=== PATIENT | female | born 1995 | race Caucasian/White ===

== ENCOUNTER 2019-12-14 17:21 | Emergency (ER) | payer OTHER ==
--- NOTE | 2019-12-14 18:50 | EDM.PDOC ---
ED HPI GENERAL MEDICAL PROBLEM - General Chief Complaint: Respiratory Problem Stated Complaint: CHEST PAIN WITH DIFFICULTY BREATHING Time Seen by Provider: 12/14/19 18:21 Source of Information: Reports: Patient History Limitations: Reports: No Limitations - History of Present Illness INITIAL COMMENTS - FREE TEXT/NARRATIVE: HISTORY AND PHYSICAL: History of present illness: Patient is a 24-year-old female who presents to the emergency room requesting evaluation for COVID-19. She states that she lives in a house with several other people who have all tested positive for COVID-19. She states they were all swabbed and tested on 11/29/2019, the other roommates tested positive, she came back negative. A week later she was retested and again came back negative (due to exposure). 2 days ago she started to develop diarrhea, chest pain and shortness of breath. She states that the shortness of breath is worse with rest and actually improves with physical activity. She is concerned that she is now just developing symptoms and her quarantine will be up on 12/20/2019 due to her exposure. Patient denies any fever, chills, headache, change in vision, syncope or near syncope. Denies neck/back pain, abdominal pain, nausea, vomiting, constipation or dysuria. Denies any chance of , Mirena IUD. Has not noted any blood in urine or stool. Patient has been eating and drinking appropriately. Review of systems: As per history of present illness and below otherwise all systems reviewed and negative. Past medical history: As per history of present illness and as reviewed below otherwise noncontributory. Surgical history: As per history of present illness and as reviewed below otherwise noncontributory. Social history: See social history for further information Family history: As per history of present illness and as reviewed below otherwise noncontributory. Physical exam: General: Well developed and well-nourished 24-year-old female. Alert and orie nted. Nontoxic-appearing and in no acute distress. HEENT: Atraumatic, normocephalic, pupils equal and reactive bilaterally, negative for conjunctival pallor or scleral icterus, scleral injection bila terally, mucous membranes moist, trachea midline. No drooling or trismus noted. No meningeal signs. No hot potato voice noted. Lungs: Clear to auscultation, breath sounds equal bilaterally, chest nontender. Nonproductive cough noted. Heart: S1S2, regular rate and rhythm without overt murmur Abdomen: Soft, nondistended, nontender. Skin: Intact, warm, dry. No lesions or rashes noted. Extremities: Atraumatic, moves all extremities per self without difficulty or deficits, negative for cords or calf pain. Neurovascular unremarkable. Neuro: Awake, alert, oriented. Cranial nerves II through XII unremarkable. Cerebellum unremarkable. Motor and sensory unremarkable throughout. Exam nonfocal. Notes: Chest x-ray shows no acute findings. EKG shows a sinus rhythm with rate of 73, no acute findings. Patient's COVID screening is positive. We discussed in great length signs and symptoms that would prompt her to return to the emergency room. Her repeat physical exam demonstrates she is stable and appropriate for discharge. Vital signs are stable. She states her roommates been in quarantine since the , encouraged her to talk with the state department about whether or not they need their quarantined extended. Will prescribe dexamethasone and pro-air inhaler for symptomatic relief. Supportive care measures were reviewed and discussed. Voices understanding and is agreeable to plan of care. Denies any further questions or concerns at this time. Diagnostics: CBC, CMP, Renteria, CXR, EKG Therapeutics: None Prescription: Dexamethasone Pro-Air Inhaler Impression: COVID-19 Plan: 1. Your COVID-19 screening is positive. That means you do have the coronavirus and are considered contagious. Your vital signs and oxygen saturation are well enough that you were able to monitor your symptoms at home. Continue to monitor for trouble breathing, new confusion or inability to arouse, bluish lips or face or any of the other symptoms we discussed -if this occurs please return to the emergency room. 2. Please self quarantine over the next 2 weeks. Your roommates will likely need to extend their quarantine as well. Inform any persons that you have been in contact with since you started becoming symptomatic that you have tested positive; they should be made aware and take the appropriate steps as needed. 3. Take the medications as we prescribed as discussed. You can take NyQuil during the evening to help get a restful night sleep. 4. You may alternate Tylenol and ibuprofen as needed for pain and fever management. 5. The [facility] department will be calling you and following up with you. The [place] Hot[place] phone [place] , They are open Tuesday - Tuesday 7am - 7pm. Follow up with your primary care provider for re-evaluation and re-testing after the 2 week quarantine and discuss when you should be seen. Definitive disposition and diagnosis as appropriate pending reevaluation and review of above. Chest Pain Score (Numeric/FACES): 2 - Related Data Allergies Allergy/AdvReac Type Severity Reaction Status Date / Time vancomycin Allergy Anaphylactic Verified 12/14/19 18:31 Shock Home Meds: Home Meds Albuterol Sulfate [Proair Hfa] 2 puff IH Q4H PRN #1 [email or web address] 12/14/19 [Rx] dexAMETHasone [Dexamethasone] 4 mg PO BID 5 Days #10 tablet 12/14/19 [Rx] Past Medical History HEENT History: Reports: None Cardiovascular History: Reports: None Respiratory History: Reports: None Gastrointestinal History: Reports: None Genitourinary History: Reports: None SOLE RUFFER History: Reports: None Other Musculoskeletal History: fx right wrist and elbow Neurological History: Reports: None Psychiatric History: Reports: None Endocrine/Metabolic History: Reports: None Hematologic History: Reports: None Immunologic History: Reports: None Oncologic (Cancer) History: Reports: None Dermatologic History: Reports: None - Infectious Disease History Infectious Disease History: Reports: MRSA - Past Surgical History Head Surgeries/Procedures: Reports: None Social & Family History - Tobacco Use Smoking Status *Q: Never Smoker Second Hand Smoke Exposure: No - Caffeine Use Caffeine Use: Reports: None - Alcohol Use Days Per Week of Alcohol Use: 3 Number of Drinks Per Day: 1 Total Drinks Per Week: 3 - Recreational Drug Use Recreational Drug Use: No ED ROS GENERAL - Review of Systems Review Of Systems: Comprehensive ROS is negative, except as noted in HPI. ED EXAM, GENERAL - Physical Exam Exam: See Below (See dictation) Course - Vital Signs Last Recorded V/S: Last Vital Signs Temp 97.5 F 12/14/19 18:36 Pulse 87 12/14/19 18:36 Resp 20 12/14/19 18:36 BP 152/87 H 12/14/19 18:36 Pulse Ox 98 12/14/19 18:36 - Orders/Labs/Meds Orders: Active Orders 24 hr Category Date Time Status EKG Documentation Completion [RC] STAT Care 12/14/19 18:46 Active COMPREHENSIVE METABOLIC PN,CMP [CHEM] Stat Lab 12/14/19 19:13 Received Labs: Laboratory Tests 12/14/19 12/14/19 Range/Units 19:04 19:13 WBC 4.56 (4.0-11.0) K/uL RBC 5.21 (4.30-5.90) M/uL Hgb 15.2 (12.0-16.0) g/dL Hct 45.1 (36.0-46.0) % MCV 86.6 (80.0-98.0) fL MCH 29.2 (27.0-32.0) pg MCHC 33.7 (31.0-37.0) g/dL RDW Std Deviation 38.2 (28.0-62.0) fl RDW Coeff of Artie 12 (11.0-15.0) % Plt Count 140 L (150-400) K/uL MPV 8.90 (7.40-12.00) fL Neut % (Auto) 43.7 L (48.0-80.0) % Lymph % (Auto) 48.7 H (16.0-40.0) % Yancey % (Auto) 5.9 (0.0-15.0) % Eos % (Auto) 1.3 (0.0-7.0) % Baso % (Auto) 0.4 (0.0-1.5) % Neut # (Auto) 2.0 (1.4-5.7) K/uL Lymph # (Auto) 2.2 (0.6-2.4) K/uL Yancey # (Auto) 0.3 (0.0-0.8) K/uL Eos # (Auto) 0.1 (0.0-0.7) K/uL Baso # (Auto) 0.0 (0.0-0.1) K/uL Nucleated RBC % 0.0 /100WBC Nucleated RBCs # 0 K/uL COVID-19 (CARLOS) POSITIVE H (NEGATIVE) Departure - Departure Time of Disposition: 19:42 Disposition: Home, Self-Care 01 Clinical Impression: COVID-19 - Discharge Information Prescriptions: dexAMETHasone [Dexamethasone] 4 mg PO BID 5 Days #10 tablet Albuterol Sulfate [Proair Hfa] 2 puff IH Q4H PRN #1 hfa.aer.ad PRN Reason: Dyspnea Instructions: COVID-19 Frequently Asked Questions Referrals: Ruth Severino, SHEET METAL ERECTOR [Primary Care Provider] - Forms: ED Department Discharge Additional Instructions: The following information is given to patients seen in the emergency department who are being discharged to home. This information is to outline your options for follow-up care. We provide all patients seen in our emergency department with a follow-up referral. The need for follow-up, as well as the timing and circumstances, are variable depending upon the specifics of your emergency department visit. If you don't have a primary care physician on staff, we will provide you with a referral. We always advise you to contact your personal physician following an emergency department visit to inform them of the circumstance of the visit and for follow-up with them and/or the need for any referrals to a consulting specialist. The emergency department will also refer you to a specialist when appropriate. This referral assures that you have the opportunity for follow-up care with a specialist. All of these measure are taken in an effort to provide you with optimal care, which includes your follow-up. Under all circumstances we always encourage you to contact your private physician who remains a resource for coordinating your care. When calling for follow-up care, please make the office aware that this follow-up is from your recent emergency room visit. If for any reason you are refused follow-up, please contact the [facility] Emergency Department at and asked to speak to the emergency department charge nurse. [facility] Primary [facility] [address] [place] [id number] [address] Thank you for choosing the [facility] emergency department in [place] for your medical needs today. It was a pleasure caring for you. You were seen in the emergency department for COVID-19. 1. Your COVID-19 screening is positive. That means you do have the coronavirus and are considered contagious. Your vital signs and oxygen saturation are well enough that you were able to monitor your symptoms at home. Continue to monitor for trouble breathing, new confusion or inability to arouse, bluish lips or face or any of the other symptoms we discussed -if this occurs please return to the emergency room. 2. Please self quarantine over the next 2 weeks. Your roommates will likely need to extend their quarantine as well. Inform any persons that you have been in contact with since you started becoming symptomatic that you have tested positive; they should be made aware and take the appropriate steps as needed. 3. Take the medications as we prescribed as discussed. You can take NyQuil during the evening to help get a restful night sleep. 4. You may alternate Tylenol and ibuprofen as needed for pain and fever management. 5. The [facility] department will be calling you and following up with you. The [place] [employer] Hotline phone number , They are open Tuesday - Tuesday 7am - 7pm. Follow up with your primary care provider for re-evaluation and re-testing after the 2 week quarantine and discuss when you should be seen. Sepsis Event Note (ED) - Evaluation Sepsis Screening Result: No Definite Risk - Focused Exam Vital Signs: Vital Signs Temp Pulse Resp BP Pulse Ox 12/14/19 18:36 97.5 F 87 20 152/87 H 98 - My Orders Last 24 Hours: My Active Orders 12/14/19 18:46 EKG Documentation Completion [RC] STAT 12/14/19 19:13 COMPREHENSIVE METABOLIC PN,CMP [CHEM] Stat - Assessment/Plan Last 24 Hours: My Active Orders 12/14/19 18:46 EKG Documentation Completion [RC] STAT 12/14/19 19:13 COMPREHENSIVE METABOLIC PN,CMP [CHEM] Stat
--- NOTE | 2019-12-14 19:21 | CR ---
Chest: Portable view of the chest was obtained. Comparison: No previous chest x-ray. Heart size and mediastinum are normal. Lungs are clear. Bony structures are grossly intact. Impression: 1. Nothing acute is seen on portable chest x-ray. Diagnostic code #1 This report was dictated in MDT
[2019-12-14 19:44] LABS: BLOOD UREA NITROGEN,BUN 13 mg/dL (7.0-18.0); CARBON DIOXIDE,CO2 25.9 mmol/L (21.0-32.0); CHLORIDE,CL 105 mmol/L (98-107); GLUCOSE RANDOM 90 mg/dL (74-106); POTASSIUM,K 4.4 mmol/L (3.5-5.1); SODIUM,NA 139 mmol/L (136-145)
== END 2019-12-14 20:03 | disposition home or self-care (01) ==
LOC: MW.ED 17:21
DX: U07.1 COVID-19 (principal); Z88.1 Allergy status to other antibiotic agents
CPT/HCPCS: 36415; 71045; 71045-26; 80053; 85025; 93005; 99282; 99285-25; U0002

== ENCOUNTER 2020-10-15 14:15 | Emergency (ER) | payer OTHER ==
[2020-10-15] MEDS ORDERED: Sodium Chloride 0.9% 2.5 ML Syringe FLUSH PRN (14:36)
[2020-10-15] MEDS ORDERED: Sodium Chloride 0.9% 10 ML Syringe FLUSH PRN (14:36)
--- NOTE | 2020-10-15 14:42 | EDM.PDOC ---
ED HPI GENERAL MEDICAL PROBLEM - General Chief Complaint: Chest Pain Stated Complaint: CHEST PAIN Time Seen by Provider: 10/15/20 14:21 - History of Present Illness INITIAL COMMENTS - FREE TEXT/NARRATIVE: History of present illness: 45-year-old female presents to emergency department today complaining of chest pain that started 2 days ago. Chest pain is episodic in nature described as being dull and achy. The pain is located in her middle and upper chest. She can feel as if "I just ran a lot" when her symptoms occur. The pain seems to be more bothersome when she sits or lies down. The pain actually feels better when she gets up and starts walking around. She also has associated heart pounding sensation shortness of breath and tingling in her fingers. The pain will last approximately 20 minutes before resolving. She reports having chest discomfort on and off since being diagnosed with Covid in December of last year. She came to the ER today because her pain got more frequent over the past 2 days. History of childhood asthma. Denies any tobacco use or illicit drug use. States she drinks alcohol occasionally. Review of systems: As per history of present illness and below otherwise all systems reviewed and negative. Past medical history: As per history of present illness and as reviewed below otherwise noncontributory. Surgical history: As per history of present illness and as reviewed below otherwise noncontributory. Social history: No reported history of drug or alcohol abuse. Family history: As per history of present illness and as reviewed below otherwise noncontributory. Physical exam: Constitutional - well developed, well-nourished and in no acute distress HEENT - normocephalic, no evidence of trauma - external nose and mouth normal - no mass in neck and no JVD - mucosae moist EYES - full EOM, PERRL, no icterus - no evidence of inflammation, injection, or drainage. Respiratory - no respiratory distress, equal bilateral expansion, lungs clear to auscultation and no abnormal lung sounds Cardiovascular - Regular Rhythm with S1 and S2 appreciated and no murmur, gallop or rub appreciated. GI - soft, non-tender, without distension or organomegaly - normal bowel sounds - no guard or rebound. Neurologic - Alert and oriented times four - CN II-XII grossly intact - motor sensory and coordination symmetrically normal. Psychiatric - appropriate mood and affect. Diagnostics: [] Therapeutics: [] Impression: [] Plan: [] Definitive disposition and diagnosis as appropriate pending reevaluation and review of above. Chest Pressure Pain Score (Numeric/FACES): 4 - Related Data Allergies Allergy/AdvReac Type Severity Reaction Status Date / Time vancomycin Allergy Anaphylactic Verified 10/15/20 14:39 Shock Home Meds: Home Meds . [No Known Home Meds] 10/15/20 [History] Past Medical History HEENT History: Reports: None Cardiovascular History: Reports: None Respiratory History: Reports: None Gastrointestinal History: Reports: None Genitourinary History: Reports: None SEC ACCOUNTANT History: Reports: None Other Musculoskeletal History: fx right wrist and elbow Neurological History: Reports: None Psychiatric History: Reports: None Endocrine/Metabolic History: Reports: None Hematologic History: Reports: None Immunologic History: Reports: None Oncologic (Cancer) History: Reports: None Dermatologic History: Reports: None - Infectious Disease History Infectious Disease History: Reports: MRSA - Past Surgical History Head Surgeries/Procedures: Reports: None Social & Family History - Caffeine Use Caffeine Use: Reports: None ED ROS GENERAL - Review of Systems Review Of Systems: Comprehensive ROS is negative, except as noted in HPI. ED EXAM, GENERAL - Physical Exam Exam: See Below Free Text/Narrative:: Physical exam is in the HPI #1 Interpretation EKG Interpretation Comments: EKG done at 2:20 PM sinus arrhythmia with a heart rate of 62. DC interval is 144 QT duration is 434 axis is 12 she has a ventricular premature complex QRS is normal except for late transition R wave in the precordium ST and T are normal as compared to 12/14/2019 and this is no change impression normal EKG Course - Vital Signs Text/Narrative:: 1530 2 PM bedside sonography did not reveal a pericardial effusion or any obvious wall motion abnormality. Zio patch was ordered because this patient has palpitations that are now progressing to the point of interfering with her normal lifestyle. Palpitations as diagnosis Zio patch for 14 days results to her primary doctor. Last Recorded V/S: Last Vital Signs Temp 37.0 C 10/15/20 14:15 Pulse 74 10/15/20 14:15 Resp 18 10/15/20 14:15 BP 149/75 H 10/15/20 14:15 Pulse Ox 97 10/15/20 14:15 - Orders/Labs/Meds Orders: Active Orders 24 hr Category Date Time Status EKG Documentation Completion [RC] AM Care 10/15/20 14:36 Active Sodium Chloride 0.9% [Saline Flush] Med 10/15/20 14:36 Active 10 ml FLUSH ASDIRECTED PRN Sodium Chloride 0.9% [Saline Flush] Med 10/15/20 14:36 Active 2.5 ml FLUSH ASDIRECTED PRN Saline Lock Insert [OM.PC] Stat Oth 10/15/20 14:36 Ordered Medication Orders Sodium Chloride (Sodium Chloride 0.9% 10 Ml Syringe) 10 ml FLUSH ASDIRECTED PRN PRN Reason: Keep Vein Open Last Admin: 10/15/20 14:41 Dose: 10 ml Documented by: WIN Sodium Chloride (Sodium Chloride 0.9% 2.5 Ml Syringe) 2.5 ml FLUSH ASDIRECTED PRN PRN Reason: Keep Vein Open Last Admin: 10/15/20 14:41 Dose: 2.5 ml Documented by: WIN Labs: Laboratory Tests 10/15/20 10/15/20 10/15/20 Range/Units 14:20 14:20 14:20 WBC 8.04 (4.0-11.0) K/uL RBC 4.91 (4.30-5.90) M/uL Hgb 14.6 (12.0-16.0) g/dL Hct 42.6 (36.0-46.0) % MCV 86.8 (80.0-98.0) fL MCH 29.7 (27.0-32.0) pg MCHC 34.3 (31.0-37.0) g/dL RDW Std Deviation 40.6 (28.0-62.0) fl RDW Coeff of Artie 13 (11.0-15.0) % Plt Count 188 (150-400) K/uL MPV 9.10 (7.40-12.00) fL Neut % (Auto) 58.7 (48.0-80.0) % Lymph % (Auto) 34.7 (16.0-40.0) % Hopkins % (Auto) 4.6 (0.0-15.0) % Eos % (Auto) 1.9 (0.0-7.0) % Baso % (Auto) 0.1 (0.0-1.5) % Neut # (Auto) 4.7 (1.4-5.7) K/uL Lymph # (Auto) 2.8 H (0.6-2.4) K/uL Hopkins # (Auto) 0.4 (0.0-0.8) K/uL Eos # (Auto) 0.2 (0.0-0.7) K/uL Baso # (Auto) 0.0 (0.0-0.1) K/uL Nucleated RBC % 0.0 /100WBC Nucleated RBCs # 0 K/uL Sodium 139 (136-145) mmol/L Potassium 3.5 (3.5-5.1) mmol/L Chloride 104 (98-107) mmol/L Carbon Dioxide 27.3 (21.0-32.0) mmol/L BUN 12 (7.0-18.0) mg/dL Creatinine 0.9 (0.6-1.0) mg/dL Est Cr Clr Drug Dosing 98.99 mL/min Estimated GFR (MDRD) > 60.0 ml/min Glucose 95 (74-106) mg/dL Calcium 9.1 (8.5-10.1) mg/dL Total Bilirubin 0.5 (0.2-1.0) mg/dL AST 34 (15-37) IU/L ALT 23 (14-63) IU/L Alkaline Phosphatase 76 (46-116) U/L Troponin I < 0.050 (0.000-0.056) ng/mL Total Protein 7.5 (6.4-8.2) g/dL Albumin 4.3 (3.4-5.0) g/dL Globulin 3.2 (2.6-4.0) g/dL Albumin/Globulin Ratio 1.3 (0.9-1.6) TSH 3rd Generation 1.89 (0.36-3.74) uIU/mL HCG, Qual NEGATIVE (NEG) Meds: Medications Generic Name Dose Route Start Last Admin Trade Name Freq PRN Reason Stop Dose Admin Sodium Chloride 10 ml 10/15/20 14:36 10/15/20 14:41 Sodium Chloride 0.9% 10 Ml Syringe FLUSH 10 ml ASDIRECTED PRN Administration Keep Vein Open Sodium Chloride 2.5 ml 10/15/20 14:36 10/15/20 14:41 Sodium Chloride 0.9% 2.5 Ml Syringe FLUSH 2.5 ml ASDIRECTED PRN Administration Keep Vein Open Departure - Departure Time of Disposition: 15:42 Disposition: Home, Self-Care 01 Condition: Good Clinical Impression: Palpitations, Atypical chest pain - Discharge Information Instructions: Nonspecific Chest Pain, Adult, [id number], Palpitations Referrals: Ruth Severino [employer]ODU[employer] II ASSEMBLER [Primary Care Provider] - Forms: ED Department Discharge Additional Instructions: Anti-inflammatory medicine and good rest are necessary for chest wall type pain. Make an appointment the cardiology clinic to see what other studies they think are necessary. Ziehl patch should be taken off and return and then follow-up with your doctor or the cardiology clinic for results. [facility] - cardiology [address] [place] [address] [facility] - Primary Care [address] [place] [id number] [address] The following information is given to patients seen in the emergency department who are being discharged to home. This information is to outline your options for follow-up care. We provide all patients seen in our emergency department with a follow-up referral. The need for follow-up, as well as the timing and circumstances, are variable depending upon the specifics of your emergency department visit. If you don't have a primary care physician on staff, we will provide you with a referral. We always advise you to contact your personal physician following an emergency department visit to inform them of the circumstance of the visit and for follow-up with them and/or the need for any referrals to a consulting specialist. The emergency department will also refer you to a specialist when appropriate. This referral assures that you have the opportunity for follow-up care with a specialist. All of these measure are taken in an effort to provide you with optimal care, which includes your follow-up. Under all circumstances we always encourage you to contact your private physician who remains a resource for coordinating your care. When calling for follow-up care, please make the office aware that this follow-up is from your recent emergency room visit. If for any reason you are refused follow-up, please contact the [facility] Emergency Department at and asked to speak to the emergency department charge nurse. Sepsis Event Note (ED) - Focused Exam Vital Signs: Vital Signs Temp Pulse Resp BP Pulse Ox 10/15/20 14:15 37.0 C 74 18 149/75 H 97 - My Orders Last 24 Hours: My Active Orders 10/15/20 14:36 EKG Documentation Completion [RC] AM Sodium Chloride 0.9% [Saline Flush] 10 ml FLUSH ASDIRECTED PRN Sodium Chloride 0.9% [Saline Flush] 2.5 ml FLUSH ASDIRECTED PRN Saline Lock Insert [OM.PC] Stat - Assessment/Plan Last 24 Hours: My Active Orders 10/15/20 14:36 EKG Documentation Completion [RC] AM Sodium Chloride 0.9% [Saline Flush] 10 ml FLUSH ASDIRECTED PRN Sodium Chloride 0.9% [Saline Flush] 2.5 ml FLUSH ASDIRECTED PRN Saline Lock Insert [OM.PC] Stat
[2020-10-15 15:00] LABS: BLOOD UREA NITROGEN,BUN 12 mg/dL (7.0-18.0); CARBON DIOXIDE,CO2 27.3 mmol/L (21.0-32.0); CHLORIDE,CL 104 mmol/L (98-107); GLUCOSE RANDOM 95 mg/dL (74-106); POTASSIUM,K 3.5 mmol/L (3.5-5.1); SODIUM,NA 139 mmol/L (136-145)
--- NOTE | 2020-10-15 15:04 | CR ---
For Patients: As a result of the Century Cures Act, medical imaging exams and procedure reports are released immediately into your electronic medical record. You may view this report before your referring provider. If you have questions, please contact your health care provider. Indication: Chest pain Technique: Chest 1 view Comparison: N December 14, 2019 one Findings/Impression: Cardiovascular and mediastinum: Heart size and vasculature are normal in caliber and appearance. Mediastinum is within normal limits. Lungs and pleural space: Lungs are clear. No sign of infiltrate or mass. No sign of pleural effusion. No pneumothorax. Bones and soft tissues: Mild S shaped scoliosis. Dictated by Amy Rosenberg MD @ 10/15/2020 3:02:[address] Amy Rosenberg @ Oct 15 2020 3:02PM
== END 2020-10-15 15:41 | disposition home or self-care (01) ==
LOC: MW.ED 14:15
DX: R07.89 Other chest pain (principal); R00.2 Palpitations; Z88.1 Allergy status to other antibiotic agents
CPT/HCPCS: 36415; 71045; 71045-26; 80053; 84443; 84484; 84703; 85025; 93005; 99285-25

== ENCOUNTER 2021-04-01 20:17 | Emergency (ER) | payer OTHER ==
--- NOTE | 2021-04-01 21:20 | CR ---
HISTORY: Pain after dislocation. COMPARISON: None available. FINDINGS: The right 4th finger is examined with PA, lateral, and oblique views. The technologist indicates pain in the area of the 4th PIP joint. There is an acute, mildly distracted avulsion fracture of the ulnar aspect of the head of the 4th proximal phalanx. There is no sign of additional fracture or dislocation of the 4th PIP joint. There is mild soft tissue swelling around the proximal portion of the 4th finger. There is no sign of additional fracture or dislocation. The soft tissues are normal in appearance without sign of radio-opaque foreign body. No degenerative disease is seen. IMPRESSION: Acute, mildly distracted, avulsion fracture of the ulnar aspect of the head of the 4th proximal phalanx. Mild diffuse swelling of the proximal 4th finger. Dictated by Ryan Vera MD @ 04/01/2021 9:18:13 PM (Electronically Signed)
[2021-04-01] MEDS ORDERED: Naproxen 500 MG Tab PO ONE (22:15)
--- NOTE | 2021-04-01 22:20 | EDM.PDOC ---
ED HPI GENERAL MEDICAL PROBLEM - General Chief Complaint: Upper Extremity Injury/Pain Stated Complaint: INJURY TO FINGER RT HAND Time Seen by Provider: 04/01/21 20:31 Source of Information: Reports: Patient History Limitations: Reports: No Limitations - History of Present Illness INITIAL COMMENTS - FREE TEXT/NARRATIVE: 25-year-old female presents with right fourth digit dislocation after going up for a block playing volleyball just prior to arrival. The ball ricocheted off her right fourth digit, causing acute onset pain and deformity. She is right- handed. Pain is severe, constant, localized to the right fourth digit, nonradiating, no alleviating or exacerbating factors, sharp. ROS: A 10-point review of systems, other than pertinent positives and negatives as stated per HPI, is otherwise negative Past medical history: No additional pertinent history Past Surgical history: No additional pertinent history Social history: No additional pertinent history Family history: No additional pertinent history PHYSICAL EXAM General: AOx4, GCS = 15, tearful in moderate distress HEENT: dry mucous membrane Neck: supple, no meningismus, no Kernig or Brudzinski Cardiac: S1S2 RRR Respiratory: CTAB, no crackles or rales, no wheezing Abdomen: Soft, nontender, no rebound or guarding, nondistended, no pulsatile mass. Back: nontender Musculoskeletal: NVI distally, deformity to the right fourth digit PIP joint Neuro: No focal deficits, CN 2 - 12 WNL. Right Finger-Ring Pain Score (Numeric/FACES): 9 - Related Data Allergies Allergy/AdvReac Type Severity Reaction Status Date / Time vancomycin Allergy Anaphylactic Verified 04/01/21 20:34 Shock Home Meds: Home Meds Naproxen [Naprosyn] 500 mg PO Q12HR #30 tab 04/01/21 [Rx] Past Medical History HEENT History: Reports: None Cardiovascular History: Reports: None Respiratory History: Reports: None Gastrointestinal History: Reports: None Genitourinary History: Reports: None [employer] History: Reports: None Other Musculoskeletal History: fx right wrist and elbow Neurological History: Reports: None Psychiatric History: Reports: None Endocrine/Metabolic History: Reports: None Hematologic History: Reports: None Immunologic History: Reports: None Oncologic (Cancer) History: Reports: None Dermatologic History: Reports: None - Infectious Disease History Infectious Disease History: Reports: MRSA - Past Surgical History Head Surgeries/Procedures: Reports: None Social & Family History - Tobacco Use Second Hand Smoke Exposure: No - Caffeine Use Caffeine Use: Reports: None - Recreational Drug Use Recreational Drug Use: No Review of Systems - Review of Systems Review Of Systems: See Below (see dictation) ED EXAM, GENERAL - Physical Exam Exam: See Below (see dictation) ED TRAUMA EXTREMITY PROCEDURES - Joint Reduction Right Fingers Pre-Procedure NV Status: Normal Post-Procedure NV Status: Normal Technique: Traction/Counter Traction Number of Attempts: 1 Post-Reduction Imaging: Completely Reduced, Fracture Seen Joint Reduction Complications: No Progress/Comments: Placed in deandre tape with middle finger post reduction. - Splinting Right 4th Digit Pre-Procedure NV Status: Normal Post-Procedure NV Status: Normal Splint Material: Deandre Tape Applied & Form Fitted By: Nurse Provider Post-Splint Application NV Check: NV Status Normal, Good Position Complications: No Course - Vital Signs Last Recorded V/S: Last Vital Signs Temp 98.2 F 04/01/21 20:30 Pulse 91 04/01/21 20:30 Resp 20 04/01/21 20:30 BP 135/94 H 04/01/21 20:30 Pulse Ox 98 04/01/21 20:30 - Orders/Labs/Meds Orders: Active Orders 24 hr Category Date Time Status Communication Order [RC] STAT Care 04/01/21 22:15 Ordered Naproxen [Naprosyn] Med 04/01/21 22:15 Once 500 mg PO ONETIME ONE - Re-Assessments/Exams Free Text/Narrative Re-Assessment/Exam: 04/01/21 22:17 After reduction in the ER, the patient improved and is currently stable for discharge. I performed a repeat exam and did not appreciate new abnormal findings. Her right fourth digit is neurovascular intact distally. I advised the patient to return to the ER for reevaluation if symptoms worsened, including fever, worsening pain, or any other worrisome symptoms. I instructed the patient to follow up with orthopedics within 2-3 days. MEDICAL DECISION MAKING: This patient was evaluated during the COVID-19 pandemic where resources and capacity might be affected. I reviewed the patients past medical records, lab and radiographic findings. I discussed the case with the patient. My differential diagnosis included: Finger dislocation, fracture. X- ray demonstrated closed avulsion fracture to the proximal phalanx head. Finger was reduced and placed in a deandre tape splint with the middle finger, she was neurovascularly intact distally. Stable for outpatient follow-up with orthopedics. Departure - Departure Time of Disposition: 22:18 Disposition: Home, Self-Care 01 Condition: Good Clinical Impression: Dislocation of right ring finger, Closed avulsion fracture of proximal phalanx of finger - Discharge Information *PRESCRIPTION DRUG MONITORING PROGRAM REVIEWED*: Not Applicable *COPY OF PRESCRIPTION DRUG MONITORING REPORT IN PATIENT NARCISA: Not Applicable Prescriptions: Naproxen [Naprosyn] 500 mg PO Q12HR #30 tab Instructions: Cast or Splint Care, Adult, [id number], Finger Fracture, Adult, Finger or Thumb Dislocation, [id number], Closed Reduction for Metacarpal Dislocation, Care After Referrals: Elder Barillas [Ordering Only Provider] - 3 Days Additional Instructions: The need for follow-up, as well as the timing and circumstances, are variable depending upon the specifics of your emergency department visit. If you don't have a primary care physician on staff, we will provide you with a referral. We always advise you to contact your personal physician following an emergency department visit to inform them of the circumstance of the visit and for follow-up with them and/or the need for any referrals to a consulting specialist. The emergency department will also refer you to a specialist when appropriate. This referral assures that you have the opportunity for follow-up care with a specialist. All of these measure are taken in an effort to provide you with optimal care, which includes your follow-up. Under all circumstances we always encourage you to contact your private physician who remains a resource for coordinating your care. When calling for follow-up care, please make the office aware that this follow-up is from your recent emergency room visit. If for any reason you are refused follow-up, please contact the [facility] Emergency Department at and asked to speak to the emergency department charge nurse. If you do not have a primary care doctor, please follow up with the clinics below within 3-5 days. [facility] [address], [address] [place] [address] Sepsis Event Note (ED) - Evaluation Sepsis Screening Result: No Definite Risk - Focused Exam Vital Signs: Vital Signs Temp Pulse Resp BP Pulse Ox 04/01/21 20:30 98.2 F 91 20 135/94 H 98 - My Orders Last 24 Hours: My Active Orders 04/01/21 22:15 Communication Order [RC] STAT Naproxen [Naprosyn] 500 mg PO ONETIME ONE - Assessment/Plan Last 24 Hours: My Active Orders 04/01/21 22:15 Communication Order [RC] STAT Naproxen [Naprosyn] 500 mg PO ONETIME ONE
== END 2021-04-01 22:31 | disposition home or self-care (01) ==
LOC: MW.ED 20:17
DX: S62.614A Displaced fracture of proximal phalanx of right ring finger, initial encounter for closed fracture (principal); Z88.1 Allergy status to other antibiotic agents; W21.06XA Struck by volleyball, initial encounter; Y93.68 Activity, volleyball (beach) (court)
CPT/HCPCS: 26725; 73140; 99283; A9270